=== PATIENT | male | born 1975 | race Caucasian/White ===

== ENCOUNTER 2017-05-12 02:26 | Emergency (ER) | payer MEDICAID ==
[~2017-05-12] VITALS: Ht 162.5 cm; Wt 54.4 kg
[~2017-05-12 02:26] MED LIST: AMOXICILLIN500 MG PO; ATARAX25 MG PO; AUGMENTIN 875 M1 TAB PO; BACTRIM DS 8001 TA1 PO; KEFLEX500 MG PO; MOTRIN800 MG PO; NKHM; PEN-VEE K500 MG PO; PERCOCET 325 MG1 TA7 PO; PREDNISONE20 MG PO; TRAMADOL HCL50 MG PO; TYLENOL W/CODEI1 TA2 PO; ULTRAM50 MG PO; VALIUM2 MG PO; VICODIN 5/500 505 MG PO; VICODIN ES 7501 TA1 PO; VICODIN ES 7501 TAB PO; XANAX1 MG PO
[2017-05-12 02:35] VITALS: BP 116/81
[2017-05-12] MEDS ORDERED: IBU800 MG PO (03:41)
== END 2017-05-12 03:42 | disposition home or self-care (01) ==
LOC: ED 02:26
DX: S09.90XA Unspecified injury of head, initial encounter (principal); M25.561 Pain in right knee; M54.2 Cervicalgia; R10.30 Lower abdominal pain, unspecified; V03.99XA Pedestrian with other conveyance injured in collision with car, pick-up truck or van, unspecified whether traffic or nontraffic accident, initial encounter; Y93.89 Activity, other specified; Y92.89 Other specified places as the place of occurrence of the external cause; Y99.8 Other external cause status

== ENCOUNTER 2017-06-24 08:47 | Emergency (ER) | payer OTHER ==
[~2017-06-24] VITALS: Ht 177.8 cm; Wt 63.5 kg
[~2017-06-24 08:47] MED LIST changes: +IBU800 MG PO
[2017-06-24 09:59] VITALS: BP 138/84
== END 2017-06-24 10:51 | disposition home or self-care (01) ==
LOC: ED 08:47
DX: T40.2X1A Poisoning by other opioids, accidental (unintentional), initial encounter (principal); R07.89 Other chest pain; Y92.89 Other specified places as the place of occurrence of the external cause

== ENCOUNTER 2017-09-23 13:42 | Emergency (ER) | payer OTHER ==
[~2017-09-23] VITALS: Wt 68.0 kg
[2017-09-23 13:45] VITALS: BP 144/88
== END 2017-09-23 13:56 | disposition home or self-care (01) ==
LOC: ED 13:42
DX: T40.1X1A Poisoning by heroin, accidental (unintentional), initial encounter (principal); Y92.89 Other specified places as the place of occurrence of the external cause

== ENCOUNTER 2018-06-18 00:33 | Emergency (ER) | payer OTHER ==
[~2018-06-18] VITALS: Wt 72.6 kg
[2018-06-18 01:49] LABS: BASO % 0.2 % (0.0-1.0); EOS # 0.1 10*3/uL (0.0-0.4); EOS % 0.5 % (1.0-4.0); HEMATOCRIT 40.3 % (42.0-52.0); HEMOGLOBIN 13.1 g/dl (14.0-18.0); LYMPH # 1.9 10*3/uL (1.3-4.4); LYMPH % 11.3 % (27.0-41.0); MEAN CELL VOLUME 94.6 fl (80.0-94.0); MEAN CORPUSCULAR HGB 30.8 pg (27.0-31.0); MEAN CORPUSCULAR HGB CONC 32.5 g/dl (33.0-37.0); MEAN PLATELET VOLUME 9.2 fl (9.6-12.3); MONO # 1.4 10*3/uL (0.1-1.0); MONO % 8.2 % (3.0-9.0); NEUT # 13.1 10*3/uL (2.3-7.9); NEUT % 79.4 % (47.0-73.0); PLATELET COUNT AUTOMATED 299 10*3/uL (130-400); RED BLOOD COUNT 4.26 10*6/uL (4.50-5.90); RED CELL DISTRI WIDTH 13.3 % (0-14.5); WHITE BLOOD COUNT 16.5 10*3/uL (4.8-10.8)
[2018-06-18 02:07] LABS: BUN 13 mg/dl (7-24); CHLORIDE 107 mmol/L (98-107); CREATININE 0.78 mg/dL (0.70-1.30); POTASSIUM 3.9 mmol/L (3.5-5.1); SGOT/AST 37 IU/L (3-35); SGPT/ALT 63 U/L (12-78); SODIUM 142 mmol/L (136-145); TOTAL PROTEIN 7.6 gm/dL (6.4-8.2)
[2018-06-18 02:08] LABS: ALKALINE PHOSPHATASE 63 U/L (45-117)
[2018-06-18 02:31] VITALS: BP 106/69
== END 2018-06-18 02:58 | disposition short-term general hospital (02) ==
LOC: ED 00:33
PROVIDERS: Emergency Medicine
DX: S01.01XA Laceration without foreign body of scalp, initial encounter (principal); S01.312A Laceration without foreign body of left ear, initial encounter; Y08.89XA Assault by other specified means, initial encounter; Y93.89 Activity, other specified; Y92.89 Other specified places as the place of occurrence of the external cause; Y99.8 Other external cause status

== ENCOUNTER 2018-08-25 11:44 | Emergency (ER) | payer SELFPAY ==
[2018-08-25 11:50] VITALS: BP 147/89
[2018-08-25] MEDS ORDERED: ZOFRAN4 MG PO (13:36)
[2018-08-25] MEDS ORDERED: NAPROSYN500 MG PO (13:36)
== END 2018-08-25 12:12 | disposition home or self-care (01) ==
LOC: ED 11:44
DX: G43.909 Migraine, unspecified, not intractable, without status migrainosus (principal)

== ENCOUNTER 2018-09-18 14:54 | Emergency (ER) | payer OTHER ==
[~2018-09-18] VITALS: Wt 65.8 kg
[2018-09-18 14:54] VITALS: BP 125/80
[~2018-09-18 14:54] MED LIST changes: +NAPROSYN500 MG PO; +ZOFRAN4 MG PO
[2018-09-18] MEDS ORDERED: DOXEPIN HCL25 MG PO (15:03)
[2018-09-18] MEDS ORDERED: 'XANAX1 MG PO (15:03)
[2018-09-18] MEDS ORDERED: QUETIAPINE FUM100 M3 PO (15:04)
[2018-09-18] MEDS ORDERED: GABAPENTIN800 MG PO (15:04)
[2018-09-18] MEDS ORDERED: BUPROPION HYDR200 M2 PO (15:04)
[2018-09-18] MEDS ORDERED: PREDNISONE20 M1 PO (15:15)
[2019-02-15] MEDS ORDERED: MEDROL DOSEPAK4 MG PO (18:35)
== END 2018-09-18 15:26 | disposition home or self-care (01) ==
LOC: ED 14:54
DX: L20.9 Atopic dermatitis, unspecified (principal); Z79.899 Other long term (current) drug therapy